=== PATIENT | female | born 1960 | race American Indian/Alaskan Native ===

== ENCOUNTER → 2024-03-28 08:45 | Outpatient (BNVA) | payer OTHER, SELFPAY | PROVIDERS: Visit Provider Specialist | DX: G30.9 Alzheimer's disease, unspecified (principal); R41.89 Other symptoms and signs involving cognitive functions and awareness; F02.80 Dementia in other diseases classified elsewhere, unspecified severity, without behavioral disturbance, psychotic disturbance, mood disturbance, and anxiety | CPT/HCPCS: 36415; 80503; 82542; 82607; 82746; 82945; 83916; 84157; 85651; 86160; 86162; 86235; 86255; 86376; 86592; 89050 ==

== ENCOUNTER → 2024-05-09 16:00 | Outpatient (BNVA) | payer OTHER, SELFPAY | PROVIDERS: Visit Provider Specialist | DX: R41.89 Other symptoms and signs involving cognitive functions and awareness (principal) | CPT/HCPCS: 36415; 82542; 83520 ==

== ENCOUNTER 2025-01-01 11:03 | Outpatient (CLI) | payer OTHER, SELFPAY ==
[2025-01-01 12:25] LABS: Hematocrit 42.0 % (36-47); Hemoglobin 14.60 g/dL (11.27-16.99); Mean Corpuscular HGB Conc 34.8 g/dL (30-55); Mean Corpuscular Hemoglobin 31.2 pg (27-33); Mean Corpuscular Volume 89.7 fl (85-98); Nucleated Red Blood Cells % 0 %; Platelet Count 231 10^3/cmm (157-399); Red Blood Count 4.68 10^6/uL (3.85-5.65); White Blood Count 7.42 10^3/uL (3.29-11.43)
[2025-01-01 13:14] LABS: Alanine Aminotransferase 26 U/L (0-33); Albumin Level 4.2 g/dL (3.5-5.2); Alkaline Phosphatase 70 U/L (35-105); Anion Gap 15.0 (5-19); Aspartate Amino Transferase 32 U/L (0-32); Blood Urea Nitrogen 22 mg/dL (8-23); Calcium 9.6 mg/dL (8.5-10.5); Carbon Dioxide 30 mmol/L (22-29); Chloride 101 mmol/L (98-107); Free T4 Free Thyroxine 1.15 ng/dL (0.82-1.77); Globulin 2.9 g/dL (1.3-4.6); Glucose 102 mg/dL (65-115); Osmolality Calculated 298 mOsm/kg (285-295); Potassium 4.0 mmol/L (3.5-5.1); Sodium 142 mmol/L (136-145); Thyroid Stimulating Hormone 4.51 uIU/mL (0.27-4.20); Total Protein 7.1 g/dL (6.6-8.7)
== END 2025-01-01 11:04 | disposition home or self-care (01) ==
PROVIDERS: Visit Provider Specialist
DX: R41.89 Other symptoms and signs involving cognitive functions and awareness (principal)
CPT/HCPCS: 36415; 80053; 84439; 84443; 85025

== ENCOUNTER 2025-02-06 08:36 | Oncology outpatient (recurring) (ONCR) | payer OTHER, SELFPAY ==
[2025-02-06 08:58] VITALS: BP 108/68; PULSE 67; TEMP 36; O2SAT 98
[2025-02-06] MEDS: donanemab-azbt 350 MG in sodium chloride 0.9% 50 ML 140 MG IV (10:02)
[2025-02-06 10:48] VITALS: BP 127/86; PULSE 50; TEMP 36.3; O2SAT 97
== END 2025-02-26 23:59 | disposition home or self-care (01) ==
PROVIDERS: Visit Provider Specialist
DX: G31.84 Mild cognitive impairment of uncertain or unknown etiology (principal); Z79.899 Other long term (current) drug therapy
CPT/HCPCS: 96413; J0175; J7050; J9999

== ENCOUNTER 2025-03-06 08:45 | Oncology outpatient (recurring) (ONCR) | payer OTHER, SELFPAY ==
[2025-03-06] MEDS: donanemab-azbt 700 MG in sodium chloride 0.9% 50 ML 180 MG IV (09:39)
[2025-03-06 10:22] VITALS: BP 112/55; PULSE 57; RESP 17; TEMP 36.7; O2SAT 97
== END 2025-03-29 23:59 | disposition home or self-care (01) ==
LOC: ONCMED 08:46
PROVIDERS: Visit Provider Specialist
DX: G31.84 Mild cognitive impairment of uncertain or unknown etiology (principal); Z79.899 Other long term (current) drug therapy
CPT/HCPCS: 96413; J0175; J7050; J9999

== ENCOUNTER 2025-04-03 08:40 | Oncology outpatient (recurring) (ONCR) | payer OTHER, SELFPAY ==
[2025-04-03 08:57] VITALS: BP 110/63; PULSE 53; RESP 17; TEMP 36.4; O2SAT 97
[2025-04-03] MEDS: donanemab-azbt 1,050 MG in sodium chloride 0.9% 50 ML 220 MG IV (09:44)
[2025-04-03 10:26] VITALS: BP 130/81; PULSE 56; RESP 16; TEMP 36.2; O2SAT 98
== END 2025-04-28 23:59 | disposition home or self-care (01) ==
LOC: ONCMED 08:40
PROVIDERS: Visit Provider Specialist
DX: Z00.6 Encounter for examination for normal comparison and control in clinical research program (principal); G31.84 Mild cognitive impairment of uncertain or unknown etiology; Z79.899 Other long term (current) drug therapy
CPT/HCPCS: 96413; J0175; J7050; J9999